=== PATIENT | female | born 1990 | race Hispanic/Latino ===

== ENCOUNTER 2024-01-25 20:09 | Emergency (ER) | payer OTHER, SELFPAY ==
[2024-01-25 20:13] VITALS: BP 167/94
[2024-01-25] MEDS: TORADOL 30 MG IM (21:37)
--- NOTE | 2024-01-25 21:39 | ED.GENMED ---
History of Present Illness
General
Chief Complaint: Headache
Source: patient
Exam Limitations: none
Time Seen by Provider: 01/25/24 21:06
Travel History
Have you had any contact with someone who has COVID-19?: No
Do you have any symptoms of coronavirus? Fever > 100 degrees, chills, cough, shortness of breath, sore throat, loss of taste or smell, muscle aches, or headache?: No
History of Present Illness
History of Present Illness:
See MDM
Past History
Past History
ED Past Medical History: None
ED Past Surgical History: None
Social History
Tobacco: Non-smoker
Alcohol: None
Drug: None
Living: with family
Phy Exam
Physical Exam
Physical Exam:
See MDM
Course
Orders/Labs/Results
Orders:
Orders
01/25/24 21:34
Ketorolac [Toradol] 30 mg IM NOW STA
Vital Signs
Initial and Last Documented VS:
Initial Vital Signs
Temp Pulse Resp BP Pulse Ox
98.9 F 74 16 167/94 98
01/25/24 20:13 01/25/24 20:13 01/25/24 20:13 01/25/24 20:13 01/25/24 20:13
Last Documented Vital Signs
Temp Pulse Resp BP Pulse Ox
98.9 F 74 16 167/94 98
01/25/24 20:13 01/25/24 20:13 01/25/24 20:13 01/25/24 20:13 01/25/24 20:13
MDM/Problems Addressed
Differential Diagnosis Includes:
HPI and MDM Narrative:
33-year-old female presenting with right-sided headache. She also feels like something is in her right eye. She denies blurry vision. She denies pain with eye movement. She intermittently gets dizzy.
On exam, she is well-appearing nontoxic. Pupils equal reactive. No focal neurodeficits.
Physical exam
General: Well appearing and non-toxic
HEENT: protecting airway. Pupils equal reactive. EOMI. No fluorescein uptake. Visual acuity 20/40 right eye, 20/50 left eye, 20/50 both eyes
Neck: supple
CV: No evidence of cyanosis
Resp: No accessory muscle use
Abd: Non-distended
Extremities: No deformities
Neuro: alert
Psych: Normal affect
Skin: Intact
Problems Addressed including Acute and Chronic Conditions affecting care:
1. [Headache
Acuity: acute
Prognosis: stable
Details: Likely in setting of migraine versus tension. Will give Toradol
2. Eye pain
Acuity: acute
Prognosis: stable
Details: No fluorescein uptake. No foreign body. Discussed outpatient follow-up with ophthalmology
Updates
Differential Diagnosis (but not limited to): Migraine, eyestrain
Testing considered: CT head but she has no focal deficits
Drug therapy (if applicable): OTC meds, please see d/c instruction regarding Rx drugs
Amount and/or Complexity of Data Reviewed
Clinical info obtained from: Patient
External data reviewed: N/A
Labs I independently reviewed (but not limited to): N/A
Radiology: N/A
Pulse Ox: not hypoxic
EKG independently reviewed: N/A
Dairy Inspector: N/A
Critical Care: N/A
Risk of Complication:
Social Determinants of health: Good social support
Discussed with other providers: N/A
Escalation of Care includes Admit/Obs: After being observed in the Emergency Department, pt stable for discharge.
Occasional wrong word or 'sound a like' substitutions may have occurred due to the inherent limitations of voice recognition software. Read the chart carefully and recognize, using context, where substitutions have occurred.
*Critical Care Note
Total Time (30-74mins, 75-104mins- exclusive of procedures): Not Applicable
ED Attending Note
-
Portions of this chart may have been created with voice recognition software.� Occasional wrong word or��sound alike� substitutions may have occurred due to the inherent limitations of voice recognition software.
Discharge Plan
Departure
Patient Disposition: Home (Routine Discharge)
Date of Disposition: 01/25/24
Time of Disposition: 21:46
Patient with high blood pressure during this ER visit?: Yes
Discharge Problem:
Headache
Instructions: Headache, Adult (DC)
Prescriptions:
No Action
Vitamin Tablet
1 tab
Referrals:
[facility] [Outside]
UNKNOWN - PT DOES,NOT KNOW [Family Provider] -
Activity Restrictions/Additional Instructions:
Please return for any worsening symptoms.
You may return at any time if you have further concerns.
Please follow up with the clinic. Please take Motrin as needed for headache.
Thank you for choosing [facility].
Interventions
Interventions:
*Risk Screen - Suicide Last Done: 01/25/24 20:13
*General Assessment Last Done: 01/25/24 20:13
*Neglect/Abuse Screening Last Done: 01/25/24 20:13
*ED COVID-19 Vaccine History Last Done: 01/25/24 20:13
ED- Neurological Assessment Last Done: 01/25/24 21:26
Discharge Date and Time
Print Language: GU[place]
== END 2024-01-25 22:00 | disposition home or self-care (01) ==
LOC: EMR 20:09
PROVIDERS: EMERGENCY PHYSICIAN Student in an Organized Health Care Education/Training Program
DX: R51.9 Headache, unspecified (principal); R03.0 Elevated blood-pressure reading, without diagnosis of hypertension
CPT/HCPCS: 99284; 96372